=== PATIENT | male | born 1960 | race African-American/Black ===

== ENCOUNTER 2018-01-24 07:46 | Day surgery (SDC) | payer OTHER ==
[2018-01-07 15:43] VITALS: BMI 35.4
[~2018-01-24 07:46] MED LIST: LACTATED RINGERS 1,000 ML IV SCH
[2018-01-24] MEDS ORDERED: LIDOCAINE 1% 20 ML VIAL (10MG/ML) FOR IV START INTRADERMA ONE (08:10)
[2018-01-24 08:16] VITALS: TEMP 97.8
[2018-01-24] MEDS ORDERED: PROPOFOL 10 MG/ML 20 ML VIAL IV ONE (08:56)
[2018-01-24] MEDS ORDERED: LIDOCAINE 1% INJ 10MG/ML (20 ML MDV) ONE (08:56)
--- NOTE | 2018-01-24 09:35 | P.PCN ---
Date of Procedure: 01/24/18 Procedure(s) Performed: Procedure: Total colonoscopy. Preoperative diagnosis: Screening for neoplasia. Postoperative diagnosis: Exam within normal limits. Preparation: HalfLytely prep. Sedation: Was provided by anesthesia. Brief clinical history: The patient is a 57-year-old male who is scheduled for this evaluation for screening for neoplasia age being his risk factor. There is no family history of colon cancer. He has no abdominal complaints, bleeding or anemia. This would be his first colonoscopy. Procedure: With the patient on his left lateral decubitus position and after informed consent and adequate sedation, the perianal area was inspected and it did not show any fissures or fistulas. There were no masses felt on digital rectal examination. The Olympus CFQ 160L video colonoscope was then inserted in the rectum in the usual fashion and advanced to the cecum. The mucosa appeared healthy. No polyps or tumors were seen or any obvious diverticular disease. The patient tolerated the procedure well. Plan: The patient was reassured. He will follow up with you as planned and I recommended repeat exam in 10 years.
[2018-01-24 09:55] VITALS: BP 136/82; PULSE 51; RESP 16
== END 2018-01-24 10:18 | disposition home or self-care (01) ==
LOC: ORWHC2ENDO 07:46
DX: Z12.11 Encounter for screening for malignant neoplasm of colon (principal); I10 Essential (primary) hypertension; Z94.7 Corneal transplant status; Z79.2 Long term (current) use of antibiotics; Z79.52 Long term (current) use of systemic steroids; Z79.899 Other long term (current) drug therapy
CPT/HCPCS: J2001; J2704; G0121

== ENCOUNTER 2020-12-28 08:09 | Day surgery (SDC) | payer OTHER ==
[2020-12-27 09:17] VITALS: BMI 33.4
[~2020-12-28 08:09] MED LIST changes: +LIDOCAINE 1% (10MG/ML) FOR IV START INTRADERMA PRN
[2020-12-28 08:39] VITALS: TEMP 97.6
[2020-12-28] MEDS ORDERED: PROPOFOL 10 MG/ML 20 ML VIAL IV ONE (09:00)
[2020-12-28] MEDS ORDERED: LIDOCAINE 1% INJ 10MG/ML (20 ML MDV) ONE (09:00)
[2020-12-28] MEDS ORDERED: GLYCOPYRROLATE 0.2 MG/ML 2 ML VIAL ONE (09:00)
--- NOTE | 2020-12-28 09:19 | P.PCN ---
Date of Procedure: 12/28/20 Description of Procedure: BRIEF HISTORY: Patient is a 60-year-old male presenting for outpatient esophagogastroduodenoscopy for evaluation of epigastric abdominal pain. The patient reported severe burning epigastric abdominal pain. Bowel movements have been "dark". No NSAIDs or alcohol use. Patient reports some improvement on Protonix therapy.. PROCEDURE PERFORMED: Esophagogastroduodenoscopy with biopsy. PREOPERATIVE DIAGNOSIS: Epigastric abdominal pain, heartburn. ESTIMATED BLOOD LOSS: Minimal. IV sedation per anesthesia. PROCEDURE: After informed consent was obtained, the patient was brought into the endoscopy unit. IV sedation was administered by Anesthesia under continuous monitoring. Initially the Olympus GIF-190 video endoscope was inserted into the mouth. Esophagus intubated without any difficulty. It was gradually advanced into the stomach and duodenum and carefully examined. The bulb and the second part of the duodenum appeared normal, with biopsies taken. The scope at this time was withdrawn to the stomach, adequately insufflated with air, and upon careful examination, mucosa of the antrum, body, cardia and the fundus appeared normal, except for some mild punctate erythema in the antrum and body suggestive of mild gastritis versus. The scope was then withdrawn into the esophagus. The GE junction was located at 41 cm from the incisors, with biopsies of the lower esophagus and. The esophagus appeared normal. There were no erosions or ulc erations seen and the patient tolerated the procedure well. IMPRESSION: 1. Mild gastritis. 2. Biopsies of the duodenum, antrum body and lower esophagus. RECOMMENDATIONS: The findings of this examination were discussed with the patient .and his family. Okay to resume diet. Okay to resume medications. Await pathology from biopsies. Follow up in the GI clinic as scheduled
[2020-12-28 09:34] VITALS: BP 136/87; PULSE 56; RESP 16
== END 2020-12-28 09:52 | disposition home or self-care (01) ==
LOC: ORWHC2ENDO 08:09
PROVIDERS: ATTEND Internal Medicine
DX: K29.50 Unspecified chronic gastritis without bleeding (principal); K21.00 Gastro-esophageal reflux disease with esophagitis, without bleeding; I10 Essential (primary) hypertension; E11.9 Type 2 diabetes mellitus without complications; Z79.899 Other long term (current) drug therapy; Z91.018 Allergy to other foods; Z91.010 Allergy to peanuts
CPT/HCPCS: 88305; 43239; J2001; J2704